=== PATIENT | male | born 1950 | race African-American/Black ===

== ENCOUNTER 2023-09-27 18:22 | Observation (INO) ==
--- NOTE | 2023-09-27 18:35 | DR.EXTPAIN ---
HPI Time seen Time Seen by Provider: 09/27/23 18:35 PCP Primary Care Physician: Anand Complaint/Symptoms Chief Complaint Doctor Comments: Patient has had abdominal pain for 12 yrs. 2 weeks ago he began to have abdl distention. He has a h/o intermittent constipation,intermittent decreased appetite. states that today after [employer] patient did not want to eat because he was nauseated.Patient had multiple episodes of emesis today. denies:Fever,hematemesis,chest pain,back pain,abdl pain. Chief Complaint:: SOB< ABD PAIN, PAIN, N/v/d COVID-19 Coronavirus risk:travel/contact w/high risk person: No Has patient experienced Coronavirus symptoms: No Source History Provided: Significant Other Mode of arrival Mode of Arrival: Stretcher Timing Onset of Chief Complaint: 09/27/23 PMH PMH Past Medical History: Yes Past Medical History: Hypertension Past Surgical History: No Surgical History: No History Family History History of Family Medical Conditions: Yes Family Medical History: Hypertension Social History Alcohol Use: None Do you use any recreational Drugs:: No Lives With: Spouse Lives Where: Home Travel Risk Coronavirus risk:travel/contact w/high risk person: No Has patient experienced Coronavirus symptoms: No Infectious screening Have you traveled outside the country in the last 6 months?: No Isolation: Standard ROS Review of Systems Constitutional: Malaise and Weakness Eyes: No Symptoms Reported ENTM: No Symptoms Reported Respiratoy: No Symptoms Reported Cardiovascular: No Symptoms Reported Gastrointestinal/Abdominal: Abdominal Pain (Bilateral lower quadrant), Nausea and Vomiting Genitourinary: No Symptoms Reported Neurological: No Symptoms Reported Musculoskeletal: No Symptoms Reported Integumentary: No Symptoms Reported Hematologic/Lymphatic: No Symptoms Reported Endocrine: No Symptoms Reported Psychiatric: No Symptoms Reported All Other Systems: Reviewed and Negative PE Vital Signs Vitals: Vital Signs Pulse Rate 62 Pulse Rate 64 Pulse Rate 69 Pulse Rate 68 Pulse Rate 73 Pulse Rate 70 Pulse Rate 70 Pulse Rate 71 Pulse Rate 72 Pulse Rate 74 Pulse Rate 74 Pulse Rate 83 Pulse Rate 78 Pulse Rate 81 Pulse Rate 81 Pulse Rate 82 Pulse Rate 81 Pulse Rate 81 Pulse Rate 83 Pulse Rate 86 Pulse Rate 89 Pulse Rate 88 Pulse Rate 95 Pulse Rate 114 Respiratory Rate 16 Respiratory Rate 16 Respiratory Rate 19 Respiratory Rate 15 Respiratory Rate 14 Respiratory Rate 13 Respiratory Rate 13 Respiratory Rate 14 Respiratory Rate 13 Respiratory Rate 14 Respiratory Rate 14 Respiratory Rate 24 Respiratory Rate 14 Respiratory Rate 16 Respiratory Rate 17 Respiratory Rate 15 Respiratory Rate 14 Respiratory Rate 14 Respiratory Rate 12 Respiratory Rate 19 Respiratory Rate 30 Respiratory Rate 24 Blood Pressure 116/73 Blood Pressure 103/70 Blood Pressure 96/62 Blood Pressure 100/60 Blood Pressure 100/60 Blood Pressure 100/60 Blood Pressure 94/65 Blood Pressure 94/65 Blood Pressure 101/71 Blood Pressure 101/71 Blood Pressure 108/72 Blood Pressure 108/72 Blood Pressure 108/70 Blood Pressure 116/72 Blood Pressure 106/73 Blood Pressure 106/73 Blood Pressure 106/73 Blood Pressure 121/79 O2 Sat by Pulse Oximetry 100 O2 Sat by Pulse Oximetry 100 O2 Sat by Pulse Oximetry 100 O2 Sat by Pulse Oximetry 100 O2 Sat by Pulse Oximetry 100 O2 Sat by Pulse Oximetry 100 O2 Sat by Pulse Oximetry 100 O2 Sat by Pulse Oximetry 100 O2 Sat by Pulse Oximetry 100 O2 Sat by Pulse Oximetry 100 O2 Sat by Pulse Oximetry 100 O2 Sat by Pulse Oximetry 99 O2 Sat by Pulse Oximetry 100 O2 Sat by Pulse Oximetry 100 O2 Sat by Pulse Oximetry 100 O2 Sat by Pulse Oximetry 100 O2 Sat by Pulse Oximetry 99 O2 Sat by Pulse Oximetry 100 O2 Sat by Pulse Oximetry 100 O2 Sat by Pulse Oximetry 100 O2 Sat by Pulse Oximetry 93 O2 Sat by Pulse Oximetry 95 O2 Sat by Pulse Oximetry 100 O2 Sat by Pulse Oximetry 100 General Limitations: No Limitations General Appearance: Alert and In No Apparent Distress Head Head Exam: Normal Inspection Eyes Eye exam: Normal Appearance ENT ENT Exam: Normal Exam Neck Neck Exam: Normal Inspection Chest Chest Inspection: Normal Inspection Respiratory Respiratory Exam: Normal Lung Sounds Bilat Respiratory Exam: Bilateral: Clear to Auscultation Cardiovascular Cardiovascular Exam: Regular Rate and Normal Rhythm Abdominal Exam Abdominal Exam: Normal Inspection, Soft, Guarding (BLQ) and Hypoactive Bowel Sounds Abdominal Tenderness: RLQ, LLQ and Severe Extremities Extremities Exam: Normal Inspection Back Back Exam: Normal Inspection Neurological Neurological Exam: Alert, Oriented X3 and CN II-XII Intact Psychiatric Psychiatric Exam: Normal Affect and Normal Mood Skin Skin Exam: Warm, Dry, Intact and Normal Color MDM Differential Diagnosis Differential Diagnosis: Other (electrolyte disorder,obstruction,p erforation,bowel ischemia) COURSE Treatment Treatment: Patient was brought to an exam room. IV access was initiated and Patient received NS 1L 500ml bolus and 500ml @ 80ml/hr iv,famotidine 20mg iv.Patient had a bp 96/62 BP and was given LR 1 liter iv bolus and Zosyn 3.375mg IV. Dicussed case with Dr Marc( General Surgeon quantitative consultant), Dr Marc has accepted patient to his service. Patient has stable CMP/CBC/amylase/lipase.Lactic acid is 2.1/CRP 4.5 Dr Husain states that Patient has a Partial Small Bowel Obstruction. ROR Labs Reviewed Laboratory Results Reviewed?: Yes 09/27/23 19:20 09/27/23 19:20 Laboratory: WBC 6.9 X10^3/uL (3.6-10.0) 09/27/23 19:20 RBC 5.14 X10^6/uL (4.7-6.0) 09/27/23 19:20 Hgb 16.7 g/dL (13.5-18.0) 09/27/23 19:20 Hct 48.7 % (42.0-54.0) 09/27/23 19:20 MCV 94.7 fL (80.0-100.0) 09/27/23 19:20 MCH 32.6 pg (27.0-34.0) 09/27/23 19:20 MCHC 34.4 g/dL (33.0-35.0) 09/27/23 19:20 RDW 13.6 % (11.6-16.5) 09/27/23 19:20 Plt Count 192 X10^3/uL (150.0-450.0) 09/27/23 19:20 MPV 9.3 fL (7.4-11.0) 09/27/23 19:20 Neut % (Auto) 81.9 % (42.0-75.0) H 09/27/23 19:20 Lymph % (Auto) 14.2 % (21.0-51.0) L 09/27/23 19:20 [place] % (Auto) 3.2 % (0.0-13.0) 09/27/23 19:20 Eos % (Auto) 0.2 % (0.9-2.9) L 09/27/23 19:20 Baso % (Auto) 0.5 % (0.2-1.0) 09/27/23 19:20 Neut # (Auto) 5.7 x10^3/uL (2.2-4.8) H 09/27/23 19:20 Lymph # (Auto) 1.0 X10^3/uL (1.3-2.9) L 09/27/23 19:20 [place] # (Auto) 0.2 x10^3/uL (0.3-0.8) L 09/27/23 19:20 Eos # (Auto) 0.0 x10^3/uL (0.0-0.2) 09/27/23 19:20 Baso # (Auto) 0.0 X10^3/uL (0.0-0.1) 09/27/23 19:20 Absolute Nucleated RBC 0.0 /100WBC 09/27/23 19:20 Sodium 142 mmol/L (136-145) 09/27/23 19:20 Corrected Sodium 143 mmol/L (136-145) 09/27/23 19:20 Potassium 4.7 mmol/L (3.5-5.1) 09/27/23 19:20 Chloride 107 mmol/L (98-107) 09/27/23 19:20 Carbon Dioxide 25.8 mmol/L (21-32) 09/27/23 19:20 BUN 20 mg/dL (7-18) H 09/27/23 19:20 Creatinine 1.35 mg/dL (0.70-1.30) H 09/27/23 19:20 Est GFR (MDRD) Af Amer > 60 (>60) 09/27/23 19:20 Est GFR (MDRD) Non-Af 55 (>60) L 09/27/23 19:20 Glucose 123 mg/dL (65-99) H 09/27/23 19:20 Lactic Acid 2.1 mmol/L (0.4-2.0) H 09/27/23 19:20 Calcium 9.2 mg/dL (8.5-10.1) 09/27/23 19:20 Corrected Calcium TNP 09/27/23 19:20 Total Bilirubin 0.60 mg/dL (0.2-1.0) 09/27/23 19:20 AST 25 Units/L (15-37) 09/27/23 19:20 ALT 28 Units/L (12-78) 09/27/23 19:20 Alkaline Phosphatase 80 Units/L (46-116) 09/27/23 19:20 Creatine Kinase 83 Units/L (39-308) 09/27/23 19:20 Troponin I High Sens < 4.0 ng/L (4.0-60.0) L 09/27/23 19:20 C-Reactive Protein 4.50 mg/L (0-3.0) H 09/27/23 19:20 B-Natriuretic Peptide 62.6 pg/mL (0-79) 09/27/23 19:20 Total Protein 8.0 g/dL (6.4-8.2) 09/27/23 19:20 Albumin 3.5 g/dL (3.4-5.0) 09/27/23 19:20 Globulin 4.5 g/dL (2.5-4.5) 09/27/23 19:20 Albumin/Globulin Ratio 0.8 Ratio (1.1-2.1) L 09/27/23 19:20 Amylase 103 Units/L (25-115) 09/27/23 19:20 Lipase 17 Units/L (16-77) 09/27/23 19:20 SARS-CoV-2 (PCR) Negative (NEGATIVE) 09/27/23 20:10 Influenza Type A (PCR) Negative (NEGATIVE) 09/27/23 20:10 Influenza Type B (PCR) Negative (NEGATIVE) 09/27/23 20:10 RSV (PCR) Negative (NEGATIVE) 09/27/23 20:10 EKG Compared to prior EKG Dated: 09/27/23 Rate: 113 [place]oley: Normal Rhythm: ST Opioid Opioid Risk Tool Age (Antoni box if 16-45): No History of Preadolescent Sexual Abuse: No Total: 0 Total Score Risk Category: Low Risk Copyright: Abilio PADILLA predicting aberrant behaviors Discharge Plan Diagnosis Discharge Problem: Partial small bowel obstruction Discharge Plan Patient Disposition: 09 ADMITTED INPATIENT Condition: Stable Prescriptions: No Action pantoprazole 40 mg tablet,delayed release (DR/EC) 40 mg PO DAILY Patient Comments: TAKE ONE TABLET BY MOUTH ONCE DAILY FOR ACID REFLUX atorvastatin 20 mg tablet 1 tab PO QPM lisinopril-hydrochlorothiazide 20-12.5 mg tablet 1 tab PO QAM hydrocodone-acetaminophen 5-325 mg tablet 1 tab PO Q6H PRN (Reason: pain) gabapentin 100 mg capsule 1 cap PO BID Linzess 145 mcg capsule 1 cap PO QDAY ibuprofen 800 mg tablet 800 mg PO TID MDD 3 PRN (Reason: pain) Qty: 20 0RF cyclobenzaprine 10 mg tablet 10 mg PO TID MDD 3 PRN (Reason: muscle spasm) Qty: 20 0RF albuterol sulfate 90 mcg/actuation HFA aerosol inhaler 2 puff inhalation Q4-6H PRNQty: 8.5 0RF Paxlovid 150-100 mg tablets,dose pack See Rx Instructions .ROUTE .COMPLEX Qty: 20 0RF Rx Instructions: orally per package directions Health Concerns: Post Hospitalization: new medications and changes needed to prevent readmission or further decline. Pt educated and given instructions on all concerns. Plan of Treatment: Continue with present treatment and follow up plan. Pt is to keep follow up appointment as instructed and take medications as ordered. Orders to Discharge Patient Discharge Orders: Transfer (Routine); Ordered 09/28/23 Ordered By: Eli Burton Follow ups/Referrals Follow ups/Referrals: ELMO PENA [Primary Care Provider] - 3 days Instructions Stand Alone Forms: Post Hospital Follow Up Care
--- NOTE | 2023-09-27 19:26 | EKG ---
Test Reason : sob Blood Pressure : */* mmHG Vent. Rate : 113 BPM Atrial Rate : 113 BPM P-R Int : 114 ms QRS Dur : 66 ms QT Int : 322 ms P-R-T Axes : 78 28 58 degrees QTc Int : 441 ms Sinus tachycardia Nonspecific ST and T wave abnormality Abnormal ECG No previous ECGs available Confirmed by Javy Stein MD ([id number]) on 09/28/2023 7:39:18 AM Referred By: Confirmed By: Javy Stein MD
[2023-09-27 19:52] LABS: BASOPHILS % (AUTO) 0.5 % (0.2-1.0); EOSINOPHILS % (AUTO) 0.2 % (0.9-2.9); HEMATOCRIT 48.7 % (42.0-54.0); HEMOGLOBIN 16.7 g/dL (13.5-18.0); LYMPHOCYTES % (AUTO) 14.2 % (21.0-51.0); MEAN CORPUSCULAR HEMOGLOBIN 32.6 pg (27.0-34.0); MEAN CORPUSCULAR HGB CONC 34.4 g/dL (33.0-35.0); MEAN CORPUSCULAR VOLUME 94.7 fL (80.0-100.0); MEAN PLATELET VOLUME 9.3 fL (7.4-11.0); MONOCYTES # (AUTO) 0.2 x10^3/uL (0.3-0.8); MONOCYTES % (AUTO) 3.2 % (0.0-13.0); NEUTROPHILS # (AUTO) 5.7 x10^3/uL (2.2-4.8); NEUTROPHILS % (AUTO) 81.9 % (42.0-75.0); PLATELET COUNT 192 X10^3/uL (150.0-450.0); RED BLOOD COUNT 5.14 X10^6/uL (4.7-6.0); RED CELL DISTRIBUTION WIDTH 13.6 % (11.6-16.5); WHITE BLOOD COUNT 6.9 X10^3/uL (3.6-10.0)
[2023-09-27 20:01] LABS: ALANINE AMINOTRANSFERASE 28 Units/L (12-78); ALBUMIN 3.5 g/dL (3.4-5.0); ALKALINE PHOSPHATASE 80 Units/L (46-116); ASPARTATE AMINO TRANSFERASE 25 Units/L (15-37); BLOOD UREA NITROGEN 20 mg/dL (7-18); CALCIUM 9.2 mg/dL (8.5-10.1); CARBON DIOXIDE 25.8 mmol/L (21-32); CHLORIDE 107 mmol/L (98-107); COR NA(FOR HYPERGLY) 143 mmol/L (136-145); CREATINE KINASE 83 Units/L (39-308); CREATININE 1.35 mg/dL (0.70-1.30); GLUCOSE 123 mg/dL (65-99); POTASSIUM 4.7 mmol/L (3.5-5.1); SODIUM 142 mmol/L (136-145); eGFR NON BLACK RACES 55 (>60)
[2023-09-27] MEDS: ZOFRAN INJ 4 MG VIAL IVP ONE (20:07)
[2023-09-27] MEDS: PEPCID 20 MG VIAL IVP ONE (20:07)
[2023-09-27] MEDS: NS 1,000 ML IV 1,000 ML IV SCH (20:07)
--- NOTE | 2023-09-27 20:46 | CT ---
EXAM:ABDCMEN/PELVIS WITH CONHISTORY:SOB< ABD PAIN, PAIN, N/v/d; ABDOMINAL PAINCOMPARISON:December 19, 2022TECHNIQUE:Axial CT images of the abdomen and pelvis were obtained after the administration of IV contrast and reformatted into coronal and sagittal planes for further evaluation.Radiation dose: 241.43 mGy-cm total DLPFINDINGS:Lung bases are clear.Stomach appears normal.Solid visceral organs of the upper abdomen are unremarkable.Gallbladder appears normal with no biliary dilatation.Small left renal cysts.Otherwise, unremarkable appearance of the kidneys and ureters.Unremarkable appearance of the urinary bladder.Imaged reproductive structures are unremarkable.Small bowel wall thickening with edema in the associated mesentery in the left abdomen. No evidence of a mechanical small bowel obstruction.Unremarkable appearance of the large bowel.No evidence of acute appendicitis.No pneumoperitoneum.Small volume ascites.No adenopathy.No acute osseous abnormality.IMPRESSION:Small bowel wall thickening with edema in the associated mesentery in the left abdomen. No evidence of a mechanical small bowel obstruction. Findings could represent infectious, inflammatory or ischemic enteritis.THIS IS AN ELECTRONICALLY VERIFIED FINAL REPORT09/27/2023 8:43 PM - Electronically signed by Kwan Andrews MD
[2023-09-28] MEDS: LR 1,000 ML IV 1,000 ML IV ONE ×2 (00:44→07:08)
[2023-09-28] MEDS: ZOSYN VIAL 3.375 GRAMS 3.375 G in NS 100 ML IV 100 ML IV SCH (01:49)
[2023-09-28] MEDS: NS 250 ML IV 25 ML IV PRN (01:51)
[2023-09-28 02:39] VITALS: BMI 23.1
[2023-09-28] MEDS ORDERED: PROVENTIL NEB TX 0.083% 2.5MG/ 3ML NEB PRN ×2 (02:49→04:51)
[2023-09-28] MEDS ORDERED: NORCO 5/325 MG TAB PO PRN (02:58)
[2023-09-28] MEDS ORDERED: FLEXERIL TAB 10 MG PO PRN (02:58)
[2023-09-28] MEDS: LR 1,000 ML IV 1,000 ML IV SCH (04:14)
[2023-09-28 05:23] LABS: RED CELL DISTRIBUTION WIDTH 13.8 % (11.6-16.5); WHITE BLOOD COUNT 4.6 X10^3/uL (3.6-10.0)
[2023-09-28 05:34] LABS: ALANINE AMINOTRANSFERASE 18 Units/L (12-78); ALBUMIN 2.4 g/dL (3.4-5.0); ALKALINE PHOSPHATASE 57 Units/L (46-116); ASPARTATE AMINO TRANSFERASE 19 Units/L (15-37); BLOOD UREA NITROGEN 21 mg/dL (7-18); CALCIUM 7.9 mg/dL (8.5-10.1); CARBON DIOXIDE 24.3 mmol/L (21-32); CHLORIDE 110 mmol/L (98-107); COR CA(FOR HYPOALB) 9.2 mg/dL (8.5-10.1); CREATININE 1.18 mg/dL (0.70-1.30); GLUCOSE 98 mg/dL (65-99); POTASSIUM 4.4 mmol/L (3.5-5.1); SODIUM 142 mmol/L (136-145); eGFR NON BLACK RACES > 60 (>60)
[2023-09-28 05:35] LABS: BASOPHILS % (AUTO) 0.7 % (0.2-1.0); EOSINOPHILS % (AUTO) 1.1 % (0.9-2.9); LYMPHOCYTES # (AUTO) 1.5 X10^3/uL (1.3-2.9); LYMPHOCYTES % (AUTO) 32.7 % (21.0-51.0); MEAN CORPUSCULAR HEMOGLOBIN 32.5 pg (27.0-34.0); MEAN CORPUSCULAR HGB CONC 34.3 g/dL (33.0-35.0); MEAN CORPUSCULAR VOLUME 94.6 fL (80.0-100.0); MEAN PLATELET VOLUME 9.7 fL (7.4-11.0); MONOCYTES # (AUTO) 0.3 x10^3/uL (0.3-0.8); MONOCYTES % (AUTO) 7.3 % (0.0-13.0); NEUTROPHILS # (AUTO) 2.7 x10^3/uL (2.2-4.8); NEUTROPHILS % (AUTO) 58.2 % (42.0-75.0); PLATELET COUNT 158 X10^3/uL (150.0-450.0); RED BLOOD COUNT 4.12 X10^6/uL (4.7-6.0)
[2023-09-28 05:36] LABS: HEMOGLOBIN 13.4 g/dL (13.5-18.0)
[2023-09-28] MEDS: OMNIPAQUE 350 mg/mL 100 mL BTL 100 ML ONE (07:06)
[2023-09-28] MEDS: NS 1,000 ML IV 1,000 ML ONE (07:06)
[2023-09-28] MEDS: PEPCID 20 MG VIAL ONE (07:07)
[2023-09-28] MEDS: ZOFRAN INJ 4 MG VIAL ONE (07:07)
[2023-09-28] MEDS: NS 100 ML IV 100 ML ONE (07:08)
[2023-09-28] MEDS: NS 250 ML IV 250 ML IV ONE (07:08)
[2023-09-28] MEDS: ZOSYN VIAL 3.375 GRAMS IV ONE (07:08)
[2023-09-28 08:19] LABS: BILIRUBIN,URINE NEGATIVE (NEGATIVE); BLOOD/HEMOGLOBIN,URINE NEGATIVE (NEGATIVE); GLUCOSE, URINE NEGATIVE (NEGATIVE); KETONES,URINE NEGATIVE (NEGATIVE); LEUKOCYTE ESTERASE ,URINE NEGATIVE (NEGATIVE); NITRITES,URINE NEGATIVE (NEGATIVE); PROTEIN,URINE 1+ (NEGATIVE); UROBILINOGEN,URINE NORMAL (NORMAL)
[2023-09-28 08:22] LABS: APPEARANCE,URINE CLEAR (CLEAR); COLOR,URINE YELLOW (YELLOW)
[2023-09-28 08:37] LABS: BACTERIA,URINE NEGATIVE /HPF (NEGATIVE); HYALINE CASTS, URINE RARE /LPF (NEGATIVE); RBC,URINE NONE SEEN /HPF (0-3); SQUAMOUS EPITHELIAL CELL,UR RARE /HPF (NEGATIVE)
[2023-09-28] MEDS: NEURONTIN CAP 100 MG PO SCH (08:38)
[2023-09-28] MEDS: PROTONIX TAB 40 MG PO SCH (08:38)
[2023-09-28] MEDS: LINZESS PO SCH (08:38)
[2023-09-28] MEDS: PATIENT'S HOME MEDICATION (Lisinopril-Hydrochlorothiazide 20-12.5 mg tablet) PO SCH (09:13)
[2023-09-28] MEDS: HYDROCHLOROTHIAZIDE 12.5 MG CAP PO SCH (10:29)
[2023-09-28] MEDS: ZESTRIL TAB 20 MG PO SCH (10:29)
[2023-09-28] MEDS: ZESTRIL TAB 20 MG ONE (11:32)
--- NOTE | 2023-09-28 12:32 | DR.PROGNOT ---
HOSPITAL PROGRESS NOTE Progress Note for Day of: Progress Note Date: 09/28/23 Chief Complaint Chief Complaint: Still complaining of diffuse abdominal pain localized to the epigastrium and lower abdomen. Complaining of nausea with no further vomiting this morning. Patient lab work showed normal WBC but he has a shift to the left with 81 segs BUN slightly elevated to 21 with normal creatinine normal liver function tests, urinalysis showed concentrated urine with negative bacteria Past Medical Family Social History Allergies: Allergies No Known Drug Allergies Allergy (Verified 07/02/23 19:59) Vital Signs Vital Signs: Vital Signs Temperature 97.8 F Temperature 98.1 F Pulse Rate [Left Radial] 70 Pulse Rate [Left Radial] 65 Respiratory Rate 18 Respiratory Rate 18 Blood Pressure [Right Arm] 126/69 Blood Pressure [Right Arm] 123/61 O2 Sat by Pulse Oximetry 100 O2 Sat by Pulse Oximetry 97 Physical Exam Speech Pattern: Clear and Appropriate Laboratory and Diagnostics 09/28/23 04:45 09/28/23 04:45 Labs: Laboratory WBC 4.6 X10^3/uL (3.6-10.0) 09/28/23 04:45 RBC 4.12 X10^6/uL (4.7-6.0) L 09/28/23 04:45 Hgb 13.4 g/dL (13.5-18.0) L D 09/28/23 04:45 Hct 39.0 % (42.0-54.0) L 09/28/23 04:45 MCV 94.6 fL (80.0-100.0) 09/28/23 04:45 MCH 32.5 pg (27.0-34.0) 09/28/23 04:45 MCHC 34.3 g/dL (33.0-35.0) 09/28/23 04:45 RDW 13.8 % (11.6-16.5) 09/28/23 04:45 Plt Count 158 X10^3/uL (150.0-450.0) 09/28/23 04:45 MPV 9.7 fL (7.4-11.0) 09/28/23 04:45 Neut % (Auto) 58.2 % (42.0-75.0) 09/28/23 04:45 Lymph % (Auto) 32.7 % (21.0-51.0) 09/28/23 04:45 [place] % (Auto) 7.3 % (0.0-13.0) 09/28/23 04:45 Eos % (Auto) 1.1 % (0.9-2.9) 09/28/23 04:45 Baso % (Auto) 0.7 % (0.2-1.0) 09/28/23 04:45 Neut # (Auto) 2.7 x10^3/uL (2.2-4.8) 09/28/23 04:45 Lymph # (Auto) 1.5 X10^3/uL (1.3-2.9) 09/28/23 04:45 [place] # (Auto) 0.3 x10^3/uL (0.3-0.8) 09/28/23 04:45 Eos # (Auto) 0.0 x10^3/uL (0.0-0.2) 09/28/23 04:45 Baso # (Auto) 0.0 X10^3/uL (0.0-0.1) 09/28/23 04:45 Absolute Nucleated RBC 0.1 /100WBC 09/28/23 04:45 Sodium 142 mmol/L (136-145) 09/28/23 04:45 Corrected Sodium TNP 09/28/23 04:45 Potassium 4.4 mmol/L (3.5-5.1) 09/28/23 04:45 Chloride 110 mmol/L (98-107) H 09/28/23 04:45 Carbon Dioxide 24.3 mmol/L (21-32) 09/28/23 04:45 BUN 21 mg/dL (7-18) H 09/28/23 04:45 Creatinine 1.18 mg/dL (0.70-1.30) 09/28/23 04:45 Est GFR (MDRD) Af Amer > 60 (>60) 09/28/23 04:45 Est GFR (MDRD) Non-Af > 60 (>60) 09/28/23 04:45 Glucose 98 mg/dL (65-99) 09/28/23 04:45 Lactic Acid 1.0 mmol/L (0.4-2.0) 09/28/23 00:40 Calcium 7.9 mg/dL (8.5-10.1) L 09/28/23 04:45 Corrected Calcium 9.2 mg/dL (8.5-10.1) 09/28/23 04:45 Total Bilirubin 0.60 mg/dL (0.2-1.0) 09/28/23 04:45 AST 19 Units/L (15-37) 09/28/23 04:45 ALT 18 Units/L (12-78) 09/28/23 04:45 Alkaline Phosphatase 57 Units/L (46-116) 09/28/23 04:45 Creatine Kinase 83 Units/L (39-308) 09/27/23 19:20 Troponin I High Sens < 4.0 ng/L (4.0-60.0) L 09/27/23 19:20 C-Reactive Protein 4.50 mg/L (0-3.0) H 09/27/23 19:20 B-Natriuretic Peptide 62.6 pg/mL (0-79) 09/27/23 19:20 Total Protein 6.0 g/dL (6.4-8.2) L 09/28/23 04:45 Albumin 2.4 g/dL (3.4-5.0) L 09/28/23 04:45 Globulin 3.6 g/dL (2.5-4.5) 09/28/23 04:45 Albumin/Globulin Ratio 0.7 Ratio (1.1-2.1) L 09/28/23 04:45 Amylase 103 Units/L (25-115) 09/27/23 19:20 Lipase 17 Units/L (16-77) 09/27/23 19:20 Specimen Type Clean catch urine 09/28/23 08:02 Urine Color Yellow (YELLOW) 09/28/23 08:02 Urine Appearance Clear (CLEAR) 09/28/23 08:02 Urine pH 5.0 (5.0 - 8.0) 09/28/23 08:02 Ur Specific [place] 1.020 (1.000-1.030) 09/28/23 08:02 Urine Protein 1+ (NEGATIVE) 09/28/23 08:02 Urine Glucose (UA) Negative (NEGATIVE) 09/28/23 08:02 Urine Ketones Negative (NEGATIVE) 09/28/23 08:02 Urine Blood Negative (NEGATIVE) 09/28/23 08:02 Urine Nitrite Negative (NEGATIVE) 09/28/23 08:02 Urine Bilirubin Negative (NEGATIVE) 09/28/23 08:02 Urine Urobilinogen Normal (NORMAL) 09/28/23 08:02 Ur Leukocyte Esterase Negative (NEGATIVE) 09/28/23 08:02 Urine RBC None seen /HPF (0-3) 09/28/23 08:02 Urine WBC None seen /HPF (0-5) 09/28/23 08:02 Ur Squamous Epith Cells Rare /HPF (NEGATIVE) 09/28/23 08:02 Urine Bacteria Negative /HPF (NEGATIVE) 09/28/23 08:02 Hyaline Casts Rare /LPF (NEGATIVE) 09/28/23 08:02 Ur Culture Indicated? No/not indicated 09/28/23 08:02 SARS-CoV-2 (PCR) Negative (NEGATIVE) 09/27/23 20:10 Influenza Type A (PCR) Negative (NEGATIVE) 09/27/23 20:10 Influenza Type B (PCR) Negative (NEGATIVE) 09/27/23 20:10 RSV (PCR) Negative (NEGATIVE) 09/27/23 20:10 Assessment and Plan 1: Assessment abdominal pain with nausea and vomiting. Partial small bowel obstruction. On IV fluid, IV antibiotics, to obtain a CEA level 2: Small bowel inflammation with wall thickening rule out inflammatory bowel disease. Partial bowel obstruction. Will start on clear liquid diet, perform a KUB this morning. 3: Hypertension to continue his home medications. Problem Patient Problems: Patient Problems (Updated 09/28/23 @ 01:10 by Eli Burton) Partial small bowel obstruction (Acute) K56.600
[2023-09-28] MEDS: LIPITOR TAB 20 MG PO SCH (21:40)
--- NOTE | 2023-09-28 23:53 | RAD ---
EXAM: KUB HISTORY: BOWEL OBSTRUCTION; Unavailable COMPARISON: None. FINDINGS: Evaluation of the abdomen demonstrates a multiple nondistended gas-filled loops of large and small vin wel. There is a mild amount of fecal material throughout the colon. There is contrast within the ur inary bladder. Prostate gland hypertrophy noted. No pathological soft tissue mass or calcification can be observed. The bony structures are grossly intact. IMPRESSION: Multiple nondistended gas-filled loops of large and small bowel suggesting generalized ileus. No evidence of bowel obstruction. THIS IS AN ELECTRONICALLY VERIFIED FINAL REPORT 09/28/2023 11:50 PM - Electronically signed by Jasper Tariq MD
[2023-09-29 05:06] LABS: BASOPHILS % (AUTO) 1.2 % (0.2-1.0); EOSINOPHILS # (AUTO) 0.1 x10^3/uL (0.0-0.2); EOSINOPHILS % (AUTO) 3.4 % (0.9-2.9); HEMATOCRIT 35.1 % (42.0-54.0); HEMOGLOBIN 11.9 g/dL (13.5-18.0); LYMPHOCYTES # (AUTO) 0.9 X10^3/uL (1.3-2.9); LYMPHOCYTES % (AUTO) 26.3 % (21.0-51.0); MEAN CORPUSCULAR HEMOGLOBIN 32.3 pg (27.0-34.0); MEAN CORPUSCULAR VOLUME 95.1 fL (80.0-100.0); MEAN PLATELET VOLUME 9.6 fL (7.4-11.0); MONOCYTES # (AUTO) 0.4 x10^3/uL (0.3-0.8); MONOCYTES % (AUTO) 12.3 % (0.0-13.0); NEUTROPHILS # (AUTO) 1.9 x10^3/uL (2.2-4.8); NEUTROPHILS % (AUTO) 56.8 % (42.0-75.0); PLATELET COUNT 136 X10^3/uL (150.0-450.0); RED BLOOD COUNT 3.69 X10^6/uL (4.7-6.0); RED CELL DISTRIBUTION WIDTH 13.6 % (11.6-16.5); WHITE BLOOD COUNT 3.3 X10^3/uL (3.6-10.0)
[2023-09-29 05:18] LABS: ALANINE AMINOTRANSFERASE 16 Units/L (12-78); ALBUMIN 2.4 g/dL (3.4-5.0); ALKALINE PHOSPHATASE 54 Units/L (46-116); ASPARTATE AMINO TRANSFERASE 18 Units/L (15-37); BLOOD UREA NITROGEN 15 mg/dL (7-18); CARBON DIOXIDE 27.1 mmol/L (21-32); CHLORIDE 109 mmol/L (98-107); COR CA(FOR HYPOALB) 9.3 mg/dL (8.5-10.1); CREATININE 1.17 mg/dL (0.70-1.30); GLUCOSE 94 mg/dL (65-99); POTASSIUM 4.1 mmol/L (3.5-5.1); SODIUM 143 mmol/L (136-145); TOTAL PROTEIN 5.8 g/dL (6.4-8.2); eGFR NON BLACK RACES > 60 (>60)
--- NOTE | 2023-09-29 08:33 | DR.PROGNOT ---
HOSPITAL PROGRESS NOTE Progress Note for Day of: Progress Note Date: 09/29/23 Chief Complaint Chief Complaint: Still complaining of diffuse abdominal pain mainly in the epigastrium and lower abdomen. Tolerated liquid diet, no nausea or vomiting today. No bowel movement. Lab work is unremarkable. KUB showed ileus pattern with dilated small and large bowel. Past Medical Family Social History Past Med/Fam/Surg Hx: No changes since H&P Allergies: Allergies No Known Drug Allergies Allergy (Verified 07/02/23 19:59) Review Of Systems ROS: No change since H&P Vital Signs Vital Signs: Vital Signs Temperature 98.1 F Pulse Rate [Left Radial] 77 Respiratory Rate 20 Blood Pressure [Left Arm] 155/77 O2 Sat by Pulse Oximetry 100 Physical Exam Oriented: Normal Eyes: Normal Ear: Normal Nose: Normal Throat: Normal Respiratory: Normal Cardiovascular: Normal GI:Auscultation: Decreased GI:Palpation: Normal GI: Tenderness: Diffuse, Epigastric and Suprapubic Speech Pattern: Clear and Appropriate Laboratory and Diagnostics 09/29/23 04:40 09/29/23 04:40 Labs: Laboratory WBC 3.3 X10^3/uL (3.6-10.0) L 09/29/23 04:40 RBC 3.69 X10^6/uL (4.7-6.0) L 09/29/23 04:40 Hgb 11.9 g/dL (13.5-18.0) L 09/29/23 04:40 Hct 35.1 % (42.0-54.0) L 09/29/23 04:40 MCV 95.1 fL (80.0-100.0) 09/29/23 04:40 MCH 32.3 pg (27.0-34.0) 09/29/23 04:40 MCHC 34.0 g/dL (33.0-35.0) 09/29/23 04:40 RDW 13.6 % (11.6-16.5) 09/29/23 04:40 Plt Count 136 X10^3/uL (150.0-450.0) L 09/29/23 04:40 MPV 9.6 fL (7.4-11.0) 09/29/23 04:40 Neut % (Auto) 56.8 % (42.0-75.0) 09/29/23 04:40 Lymph % (Auto) 26.3 % (21.0-51.0) 09/29/23 04:40 [place] % (Auto) 12.3 % (0.0-13.0) 09/29/23 04:40 Eos % (Auto) 3.4 % (0.9-2.9) H 09/29/23 04:40 Baso % (Auto) 1.2 % (0.2-1.0) H 09/29/23 04:40 Neut # (Auto) 1.9 x10^3/uL (2.2-4.8) L 09/29/23 04:40 Lymph # (Auto) 0.9 X10^3/uL (1.3-2.9) L 09/29/23 04:40 [place] # (Auto) 0.4 x10^3/uL (0.3-0.8) 09/29/23 04:40 Eos # (Auto) 0.1 x10^3/uL (0.0-0.2) 09/29/23 04:40 Baso # (Auto) 0.0 X10^3/uL (0.0-0.1) 09/29/23 04:40 Absolute Nucleated RBC 0.1 /100WBC 09/29/23 04:40 Sodium 143 mmol/L (136-145) 09/29/23 04:40 Corrected Sodium TNP 09/29/23 04:40 Potassium 4.1 mmol/L (3.5-5.1) 09/29/23 04:40 Chloride 109 mmol/L (98-107) H 09/29/23 04:40 Carbon Dioxide 27.1 mmol/L (21-32) 09/29/23 04:40 BUN 15 mg/dL (7-18) 09/29/23 04:40 Creatinine 1.17 mg/dL (0.70-1.30) 09/29/23 04:40 Est GFR (MDRD) Af Amer > 60 (>60) 09/29/23 04:40 Est GFR (MDRD) Non-Af > 60 (>60) 09/29/23 04:40 Glucose 94 mg/dL (65-99) 09/29/23 04:40 Lactic Acid 1.0 mmol/L (0.4-2.0) 09/28/23 00:40 Calcium 8.0 mg/dL (8.5-10.1) L 09/29/23 04:40 Corrected Calcium 9.3 mg/dL (8.5-10.1) 09/29/23 04:40 Total Bilirubin 0.60 mg/dL (0.2-1.0) 09/29/23 04:40 AST 18 Units/L (15-37) 09/29/23 04:40 ALT 16 Units/L (12-78) 09/29/23 04:40 Alkaline Phosphatase 54 Units/L (46-116) 09/29/23 04:40 Creatine Kinase 83 Units/L (39-308) 09/27/23 19:20 Troponin I High Sens < 4.0 ng/L (4.0-60.0) L 09/27/23 19:20 C-Reactive Protein 4.50 mg/L (0-3.0) H 09/27/23 19:20 B-Natriuretic Peptide 62.6 pg/mL (0-79) 09/27/23 19:20 Total Protein 5.8 g/dL (6.4-8.2) L 09/29/23 04:40 Albumin 2.4 g/dL (3.4-5.0) L 09/29/23 04:40 Globulin 3.4 g/dL (2.5-4.5) 09/29/23 04:40 Albumin/Globulin Ratio 0.7 Ratio (1.1-2.1) L 09/29/23 04:40 Amylase 103 Units/L (25-115) 09/27/23 19:20 Lipase 17 Units/L (16-77) 09/27/23 19:20 Specimen Type Clean catch urine 09/28/23 08:02 Urine Color Yellow (YELLOW) 09/28/23 08:02 Urine Appearance Clear (CLEAR) 09/28/23 08:02 Urine pH 5.0 (5.0 - 8.0) 09/28/23 08:02 Ur Specific [place] 1.020 (1.000-1.030) 09/28/23 08:02 Urine Protein 1+ (NEGATIVE) 09/28/23 08:02 Urine Glucose (UA) Negative (NEGATIVE) 09/28/23 08:02 Urine Ketones Negative (NEGATIVE) 09/28/23 08:02 Urine Blood Negative (NEGATIVE) 09/28/23 08:02 Urine Nitrite Negative (NEGATIVE) 09/28/23 08:02 Urine Bilirubin Negative (NEGATIVE) 09/28/23 08:02 Urine Urobilinogen Normal (NORMAL) 09/28/23 08:02 Ur Leukocyte Esterase Negative (NEGATIVE) 09/28/23 08:02 Urine RBC None seen /HPF (0-3) 09/28/23 08:02 Urine WBC None seen /HPF (0-5) 09/28/23 08:02 Ur Squamous Epith Cells Rare /HPF (NEGATIVE) 09/28/23 08:02 Urine Bacteria Negative /HPF (NEGATIVE) 09/28/23 08:02 Hyaline Casts Rare /LPF (NEGATIVE) 09/28/23 08:02 Ur Culture Indicated? No/not indicated 09/28/23 08:02 SARS-CoV-2 (PCR) Negative (NEGATIVE) 09/27/23 20:10 Influenza Type A (PCR) Negative (NEGATIVE) 09/27/23 20:10 Influenza Type B (PCR) Negative (NEGATIVE) 09/27/23 20:10 RSV (PCR) Negative (NEGATIVE) 09/27/23 20:10 Assessment and Plan 1: Assessment abdominal pain with nausea and vomiting. Partial small bowel obstruction. On IV fluid, IV antibiotics, to obtain a CEA level For EGD in the morning 2: Small bowel inflammation with wall thickening rule out inflammatory bowel disease. Partial bowel obstruction. Will start on clear liquid diet, perform a KUB this morning. 3: Hypertension to continue his home medications. Medical consult Problem Patient Problems: Patient Problems (Updated 09/28/23 @ 01:10 by Eli Burton) Partial small bowel obstruction (Acute) K56.600
[2023-09-29] MEDS ORDERED: ZESTRIL TAB 20 MG ONE (08:38)
[2023-09-29] MEDS: HIBICLENS WASH EXT ONE (20:52)
[2023-09-30 05:39] LABS: BASOPHILS % (AUTO) 0.9 % (0.2-1.0); EOSINOPHILS # (AUTO) 0.1 x10^3/uL (0.0-0.2); EOSINOPHILS % (AUTO) 3.5 % (0.9-2.9); HEMOGLOBIN 11.9 g/dL (13.5-18.0); LYMPHOCYTES # (AUTO) 1.2 X10^3/uL (1.3-2.9); LYMPHOCYTES % (AUTO) 39.2 % (21.0-51.0); MEAN CORPUSCULAR HEMOGLOBIN 32.3 pg (27.0-34.0); MEAN CORPUSCULAR HGB CONC 34.1 g/dL (33.0-35.0); MEAN CORPUSCULAR VOLUME 94.7 fL (80.0-100.0); MEAN PLATELET VOLUME 9.7 fL (7.4-11.0); MONOCYTES # (AUTO) 0.4 x10^3/uL (0.3-0.8); MONOCYTES % (AUTO) 12.6 % (0.0-13.0); NEUTROPHILS # (AUTO) 1.4 x10^3/uL (2.2-4.8); NEUTROPHILS % (AUTO) 43.8 % (42.0-75.0); PLATELET COUNT 139 X10^3/uL (150.0-450.0); RED BLOOD COUNT 3.69 X10^6/uL (4.7-6.0); RED CELL DISTRIBUTION WIDTH 13.4 % (11.6-16.5); WHITE BLOOD COUNT 3.1 X10^3/uL (3.6-10.0)
[2023-09-30 05:46] LABS: ALANINE AMINOTRANSFERASE 16 Units/L (12-78); ALBUMIN 2.6 g/dL (3.4-5.0); ALKALINE PHOSPHATASE 53 Units/L (46-116); ASPARTATE AMINO TRANSFERASE 16 Units/L (15-37); BLOOD UREA NITROGEN 10 mg/dL (7-18); CALCIUM 8.2 mg/dL (8.5-10.1); CARBON DIOXIDE 29.2 mmol/L (21-32); CHLORIDE 109 mmol/L (98-107); COR CA(FOR HYPOALB) 9.3 mg/dL (8.5-10.1); CREATININE 1.11 mg/dL (0.70-1.30); GLUCOSE 83 mg/dL (65-99); POTASSIUM 3.6 mmol/L (3.5-5.1); SODIUM 144 mmol/L (136-145); TOTAL PROTEIN 6.1 g/dL (6.4-8.2); eGFR NON BLACK RACES > 60 (>60)
[2023-09-30] MEDS ORDERED: CONSULT PHARMACY - POTASSIUM & MAGNESIUM XX SCH ×2 (07:00→20:00)
[2023-09-30] MEDS ORDERED: ZESTRIL TAB 20 MG ONE (09:46)
[2023-09-30] MEDS ORDERED: NS 250 ML IV 250 ML IV ONE (09:47)
[2023-09-30] MEDS: NORVASC TAB 5 MG PO SCH (09:53)
[2023-09-30] MEDS: K-RIDER 10 MEQ/100 ML WATER 10 MEQ/100 ML BAG IV SCH (09:55)
[2023-09-30] MEDS: MAGNESIUM SULFATE 1 GRAM/100 mL PREMIX 1 G/100 ML BAG IV SCH ×2 (09:56)
[2023-09-30] MEDS: LR 1,000 ML IV 1,000 ML with MAGNESIUM SULFATE 50% INJ VIAL 2 G IV SCH (11:50)
[2023-09-30] MEDS ORDERED: NS 500 ML IV 500 ML IV ONE (13:40)
[2023-09-30] MEDS: DIPRIVAN VIAL 20 ML ONE (14:09)
[2023-09-30] MEDS: KLOR-CON PO SCH (21:18)
[2023-09-30] MEDS: MAG-OX TAB PO SCH (21:19)
[2023-10-01 06:17] LABS: EOSINOPHILS # (AUTO) 0.1 x10^3/uL (0.0-0.2); EOSINOPHILS % (AUTO) 3.4 % (0.9-2.9); HEMATOCRIT 33.6 % (42.0-54.0); HEMOGLOBIN 11.6 g/dL (13.5-18.0); LYMPHOCYTES # (AUTO) 1.4 X10^3/uL (1.3-2.9); LYMPHOCYTES % (AUTO) 40.8 % (21.0-51.0); MEAN CORPUSCULAR HEMOGLOBIN 32.5 pg (27.0-34.0); MEAN CORPUSCULAR HGB CONC 34.6 g/dL (33.0-35.0); MEAN PLATELET VOLUME 9.7 fL (7.4-11.0); MONOCYTES # (AUTO) 0.3 x10^3/uL (0.3-0.8); MONOCYTES % (AUTO) 8.6 % (0.0-13.0); NEUTROPHILS # (AUTO) 1.6 x10^3/uL (2.2-4.8); NEUTROPHILS % (AUTO) 46.2 % (42.0-75.0); PLATELET COUNT 132 X10^3/uL (150.0-450.0); RED BLOOD COUNT 3.57 X10^6/uL (4.7-6.0); RED CELL DISTRIBUTION WIDTH 13.1 % (11.6-16.5); WHITE BLOOD COUNT 3.4 X10^3/uL (3.6-10.0)
[2023-10-01 06:18] LABS: ALANINE AMINOTRANSFERASE 15 Units/L (12-78); ALBUMIN 2.5 g/dL (3.4-5.0); ALKALINE PHOSPHATASE 57 Units/L (46-116); ASPARTATE AMINO TRANSFERASE 18 Units/L (15-37); BLOOD UREA NITROGEN 8 mg/dL (7-18); CALCIUM 8.3 mg/dL (8.5-10.1); CARBON DIOXIDE 28.5 mmol/L (21-32); CHLORIDE 109 mmol/L (98-107); COR CA(FOR HYPOALB) 9.5 mg/dL (8.5-10.1); COR NA(FOR HYPERGLY) 144 mmol/L (136-145); CREATININE 1.24 mg/dL (0.70-1.30); GLUCOSE 123 mg/dL (65-99); POTASSIUM 4.3 mmol/L (3.5-5.1); SODIUM 143 mmol/L (136-145); eGFR NON BLACK RACES > 60 (>60)
[2023-10-01] MEDS ORDERED: ZESTRIL TAB 20 MG ONE (08:54)
[2023-10-01 11:57] VITALS: BP 140/77; PULSE 74; RESP 20; TEMP 98.3; O2SAT 95
--- NOTE | 2023-10-01 16:36 | US ---
EXAM:GALL BLADDERHISTORY:abd pain; ABD PAIN, SMALL BOWEL OBSTRUCTIONCOMPARISON:CT abdomen and pelvis 09/27/2023TECHNIQUE:65 images made by the layout man. [place] scale and color-flow images of the right upper quadrant were obtained.FINDINGS:The liver has normal echogenicity and size. No mass or intrahepatic biliary duct dilatation is present. The intrahepatic inferior vena cava was imaged. The portal vein is patent with blood flow toward the liver. The visualized hepatic veins are patent with blood flow toward the right atrium. The hepatic artery was patent.The pancreas was not well seen due to overlying bowel gas.The gallbladder is normally distended with no stones, wall thickening, or pericholecystic fluid. No extrahepatic biliary duct dilatation; common duct is normal.The right kidney is normal in size and echogenicity. No hydronephrosis. Resistive index measures 0.7.IMPRESSION:1. No significant abnormalityTHIS IS AN ELECTRONICALLY VERIFIED FINAL REPORT10/01/2023 4:33 PM - Electronically signed by Peter Sotelo MD
== END 2023-10-01 12:30 | disposition home or self-care (01) ==
LOC: MED/SURG 18:22 → ER 18:22 → MED/SURG 09-28 02:01
PROVIDERS: ADMIT Surgery; ATTEND Surgery